=== PATIENT | female | born 2000 | race Caucasian/White ===

== ENCOUNTER 2025-08-06 08:06 | Emergency (ER) | payer OTHER, SELFPAY ==
[2025-08-06 08:08] VITALS: BP 102/77
--- NOTE | 2025-08-06 08:24 | ED.GENMED ---
History of Present Illness
General
Chief Complaint: Abdominal Pain
Source: patient
Exam Limitations: none
Time Seen by Provider: 08/06/25 08:20
Nursing documentation reviewed up to this point in time: agreed with
History of Present Illness
History of Present Illness:
25 yo female w h/o endometriosis who presents with 'a flare of my endometriosis,' nausea, diarrhea and abdominal pain, describing it as a constant pressure affecting her 'entire body' mostly from chest to lower abdomen and into lower back. She
reports that the symptoms began 'July 19 and have been constant w little relief with Aleve. The patient notes a history of similar episodes, though she mentioned this is the worst flare she has experienced. The patient reports vomiting and
diarrhea, describing the diarrhea as watery. Currently, she rates her abdominal pain as '8/10.' She has not eaten due to intractable nausea. Last diarrhea, earlier this a.m. No recent travel. No known sick contacts, no recent antibiotic use. Denies
fever. LMP 06/20. She has no PCP as she recently moved here from [place].
Past History
Past History
ED Past Medical History: Other (Endometriosis)
Social History
Tobacco: Non-smoker
Alcohol: None
Personal: Single
Living: with roommate
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
Review of Systems
Review of Systems
Allergies reviewed?: Yes
All Other Systems: ROS reviewed and negative except as documented in HPI and ROS
Respiratory: Denies trouble breathing
Cardiac: Denies chest pain
ABD/GI: Reports abdominal pain, nausea, vomiting, diarrhea and anorexia; Denies bloody stools or black stools
: Denies dysuria, frequency, difficulty voiding, urgency or discharge
Musculoskeletal: Reports no symptoms
Skin: Reports no symptoms
Neurological: Reports no symptoms
Phy Exam
Physical Exam
Physical Exam:
GENERAL: No acute distress. A&Ox3.
CONSTITUTIONAL: Afebrile.
EYES: clear, conjunctivae normal
ENMT: moist mucus membranes, Pharynx nl
RESPIRATORY: Regular respirations, nonlabored, lungs clear.
CARDIOVASCULAR: Regular rate and rhythm, no murmurs, no rubs.
GI: Soft, tender mid to left abdomen, non distended, normal BS
MUSCULOSKELETAL: Moves with ease. Well perfused.
SKIN: Warm, dry, pink
PSYCH: Normal mood and affect. Well kept, interactive and appropriate
NEUROLOGIC: Awake, alert and oriented. No focal neurological deficits
Course
Orders/Labs/Results
Orders:
Orders
08/06/25 08:31
Ondansetron Injectable [Zofran] 4 mg IV NOW STA
Test Result ONCE
08/06/25 08:32
0.9% Sodium Chloride 1000 ml [Nss] 1,000 ml IV BOLUS
Iohexol [Omnipaque] See Protocol PO NOW STA
08/06/25 08:36
Ketorolac [Toradol] 15 mg IV NOW STA
08/06/25 08:48
Beta HCG Quantitative Urgent
Comment: ADD ON
Complete Blood Count/With Diff Urgent
Comprehensive Metabolic Panel Urgent
HCG, Serum Qualitative Screen Urgent
Lipase Urgent
Urinalysis Reflex To Culture Urgent
Date Specimen was Collected: 08/06/25
Time Specimen was Collected: 08:40
Urine Microscopic Reflex Cult Urgent
08/06/25 09:21
Add On- LAB Urgent
Tests Added?: Beta Quantitative serum
08/06/25 10:58
US W Transvaginal Urgent
Reason For Exam: abd pain, + test
Abnormal Lab Results
08/06/25
08:48
Absolute Lymphs (auto) 0.9 L 10^3/uL
(1.2-3.4)
Neutrophils % 81.4 H %
(42.2-75.2)
Lymphocytes % 10.9 L %
(20.5-51.1)
Urine Ketones 1+ A
(Negative)
Ur Occult Blood Reflex 1+ A
(Negative)
Urine Bacteria (Reflex) Few A
(Negative)
08/06/25 08:48
08/06/25 08:48
Vital Signs
Initial and Last Documented VS:
Initial Vital Signs
Temp Pulse Resp BP Pulse Ox
98.7 F 73 18 102/77 99
08/06/25 08:08 08/06/25 08:08 08/06/25 08:08 08/06/25 08:08 08/06/25 08:08
Last Documented Vital Signs
Temp Pulse Resp BP Pulse Ox
97.9 F 70 15 106/60 99
08/06/25 14:00 08/06/25 14:00 08/06/25 14:00 08/06/25 14:00 08/06/25 14:00
MDM/Problems Addressed
Differential Diagnosis Includes:
Gastroenteritis, gastritis, diverticulitis,
MDM/Problems Addressed:
25 yo female w h/o endometriosis who presents with 'a flare of my endometriosis,' nausea, diarrhea and abdominal pain, describing it as a constant pressure affecting her 'entire body' mostly from chest to lower abdomen and into lower back. She
reports that the symptoms began 'July 19 and have been constant w little relief with Aleve. The patient notes a history of similar episodes, though she mentioned this is the worst flare she has experienced. The patient reports vomiting and
diarrhea, describing the diarrhea as watery. Currently, she rates her abdominal pain as '8/10.' She has not eaten due to intractable nausea. Last diarrhea, earlier this a.m. No recent travel. No known sick contacts, no recent antibiotic use. Denies
fever. LMP 06/20. She has no PCP as she recently moved here from [place].
Afebrile, NAD
Summary of initial encounter and Plan:
The patient was seen in the emergency department for evaluation and management of severe nausea and abdominal discomfort with associated diarrhea. The priority was to provide symptomatic relief and to evaluate for potential underlying causes of her
symptoms considering her history and current presentation. She was administered intravenous fluids and antiemetic therapy with Zofran. Further diagnostic workup with blood tests is planned, and a CT scan of the abdomen, pending preparation.
Update Plan:
The immediate plan includes medical assessment and management of her symptoms. The patient will receive intravenous fluids and Zofran for nausea relief.
Pt and boyfriend at bedside notified of +HCG. DC'd CT prep and scan. Toradol not given.
CBC normal CMP normal
hCG positive awaiting quantitative hCG
U/A neg
11:30 a.m.
Beta Quant [id number]
Pt in US
1:10 p.m.
US radiology report read: IMPRESSION:
1. Single live intrauterine gestation with estimated gestational age 6 weeks 4 days.
2. Very small subchorionic hemorrhage. Consider short-term follow-up ultrasound examination for further evaluation as warranted.
3. Very small volume of simple free fluid within the pelvis.
Referred to [facility]
Copy of US report given to pt
Pt denies any significant abdominal pain at this time.
Ambulated out with normal gait with boyfriend
*Pulse Oximetry
SaO2: 99
Oxygen Mode of Delivery: Room air
Patient hypoxic: no
*Critical Care Note
Total Time (30-74mins, 75-104mins- exclusive of procedures): Not Applicable
ED Attending Note
-
Portions of this chart may have been created with voice recognition software.� Occasional wrong word or��sound alike� substitutions may have occurred due to the inherent limitations of voice recognition software.
Discharge Plan
Departure
Patient Disposition: Home (Routine Discharge)
Date of Disposition: 08/06/25
Time of Disposition: 13:37
Patient with high blood pressure during this ER visit?: No
Condition: Good
Discharge Problem:
Abdominal pain in early
Instructions: Stomach Pain in Early , Morning sickness - ED (DC)
Prescriptions:
New
ondansetron 4 mg tablet,disintegrating
4 mg PO Q8H PRN (Reason: nausea and vomiting) 5 Days Qty: 15 0RF
Referrals:
Alcira Quintana, DO [Active, Gynecology] - Next open appointment
NONE,* [Family Provider, Internal Medicine]
Activity Restrictions/Additional Instructions:
As we discussed, I am not sure with the cause of your abdominal pain was, it seems improved at this time.
Your ultrasound shows a normal 6-week 4-day : Make an appointment with the [facility] doctor today to as you will need a follow-up ultrasound as it is noted on today's ultrasound report.
Interventions
Interventions:
*Risk Screen - Suicide Last Done: 08/06/25 08:08
*Neglect/Abuse Screening Last Done: 08/06/25 08:08
*ED COVID-19 Vaccine History Last Done: 08/06/25 08:08
*ED Influenza Vaccine History Last Done: 08/06/25 08:08
[facility] Risk Assessment Tool Last Done: 08/06/25 08:07
*Nursing Disposition Last Done: 08/06/25 14:30
RJ-[id number]-[id number] Assessment Last Done: 08/06/25 08:53
Discharge Date and Time
Discharge Date/Time: 08/06/25 14:30
Print Language: [place]
[2025-08-06 08:40] VITALS: BMI 19.2
[2025-08-06] MEDS: NSS 1000 IV (08:54)
[2025-08-06] MEDS: ZOFRAN 4 MG IV (08:54)
[2025-08-06] MEDS: OMNIPAQUE 50 ML PO (08:55)
[2025-08-06 08:56] LABS: Hematocrit 37.5 % (37.0-47.0); Hemoglobin 13.0 g/dL (12.0-16.0); Mean Corp Hgb Conc. 34.7 g/dL (33.0-37.0); Mean Corpuscular Volume 87.2 fL (81.0-99.0); Nucleated Red Blood Cells % 0 %; Platelet Count 161 10^3/uL (130-400); Red Cell Dist. Width 12.0 % (11.5-14.5)
[2025-08-06 09:05] LABS: Urine Character Clear (Clear)
[2025-08-06 09:17] LABS: HCG, Serum Qualitative Screen Positive
[2025-08-06 09:22] LABS: ALT (SGPT) < 10 U/L (0-35); AST (SGOT) 19 U/L (14-36); Albumin 4.6 g/dl (3.5-5.0); Alkaline Phosphatase 49 U/L (38-126); Blood Urea Nitrogen 8 mg/dl (7-17); Calcium 9.2 mg/dl (8.4-10.2); Carbon Dioxide 25 mmol/L (22-30); Chloride 106 mmol/L (98-107); Estimated Creatinine Clearance > 125 ml/min; Glucose 91 mg/dl (70-99); Lipase 41 U/L (23-300); Potassium 4.0 mmol/L (3.5-5.1); Sodium 137 mmol/L (135-145); Total Protein 7.1 g/dl (6.3-8.2); eGFR > 60.00
[2025-08-06 09:29] LABS: Urine Red Blood Cell 0-2 /HPF (0-2); Urine White Cell 0-2 /HPF (0-5)
[2025-08-06 11:11] VITALS: BP 102/64
[2025-08-06 14:00] VITALS: BP 106/60
== END 2025-08-06 14:30 | disposition home or self-care (01) ==
LOC: EMR 08:06
PROVIDERS: Registered Nurse; EMERGENCY PHYSICIAN Emergency Medicine
DX: O26.891 Other specified pregnancy related conditions, first trimester (principal); R10.9 Unspecified abdominal pain; R11.0 Nausea; R19.7 Diarrhea, unspecified; M54.50 Low back pain, unspecified; Z3A.01 Less than 8 weeks gestation of pregnancy
CPT/HCPCS: 96374; 96361; 99284; 76801; 76817; 80053; 81003; 81015; 83690; 84702; 84703; 85025